=== PATIENT | female | born 1950 | race Caucasian/White ===

== ENCOUNTER 2017-11-09 09:29 | Emergency (ER) | payer OTHER ==
[~2017-11-09] VITALS: Ht 160 cm; Wt 58.6 kg
[2017-11-09 09:34] VITALS: O2SAT 99
[2017-11-09 09:41] VITALS: TEMP 36.5; Ht 160 cm; Wt 58.6 kg
[2017-11-09] MEDS: DIAZEPAM INJ 5 MG/ML 2 ML CARP IV STA ×2 (09:47→10:26)
[2017-11-09] MEDS ORDERED: ONDANSETRON INJ 2 MG/ML 2 ML VIAL IV STA (09:47)
--- NOTE | 2017-11-09 09:51 | EMERGENCY ROOM VISIT NOTE ---
History Report prepared by Andie: Raul Mccall Under the Supervision of: Dr. Michael Kwan D.O. First contact with patient: 09:42 Chief Complaint: ILLNESS Stated Complaint: ILLNESS, DIZINESS History of Present Illness The patient is a 67 year old female who presents to the Emergency Room with complaints of intermittent dizziness that began when the patient woke up this morning at 0700, 3 hours ago. The patient states that when she stood up our of bed she felt like the "room was flipping and spinning around." She immediately laid back down in bed and shut her eyes, which calmed the symptoms. The dizziness continues to be worsened with movement. The patient then got up and went to the restroom. As she was using the bathroom she got nauseous and felt like she was going to vomit. She only dry heaved. The patient continued to add that she noticed her hands feeling "tingling" during these dizzy episodes. The patient did mention one episode of vertigo several years ago, but has no significant history. Source of History: patient Onset: 3 hours ago Position: head Quality: other (dizziness) Timing: intermittent Associated Symptoms: + nausea, + numbness (tingling in hands. ) Review of Systems See HPI for pertinent positives & negatives. A total of 10 systems reviewed and were otherwise negative. Past Medical & Surgical Medical Problems: (1) LBBB (left bundle branch block) LBBB (left bundle branch block) Family History Omitted secondary to age. Social History Alcohol Use: none Drug Use: none Housing Status: lives alone Occupation Status: retired Current/Historical Medications Scheduled Meclizine Hcl (Meclizine Hcl), 1 TAB PO TID Allergies Coded Allergies: No Known Allergies (Unverified , 11/09/17) Physical Exam Vital Signs Date Time Temp Pulse Resp B/P (MAP) Pulse Ox O2 Delivery O2 Flow Rate FiO2 11/09/17 13:07 75 16 115/76 98 11/09/17 11:20 68 16 109/63 98 Room Air 11/09/17 10:26 76 18 121/78 95 Room Air 11/09/17 10:09 72 11/09/17 09:41 36.5 75 16 138/90 99 Room Air 11/09/17 09:34 99 Room Air Physical Exam GENERAL: Patient is awake, alert, and in no acute distress. Patient is resting comfortably and showing no signs of anxiety EYES: The conjunctivae are clear. The pupils are round and reactive. EARS, NOSE, MOUTH AND THROAT: The nose is without any evidence of any deformity. Mucous membranes are moist tongue is midline NECK: The neck is nontender and supple. RESPIRATORY: Normal respiratory effort is noted there is no evidence of wheezing rhonchi or rales CARDIOVASCULAR: Regular rate and rhythm noted there no murmurs rubs or gallops normal S1 normal S2 GASTROINTESTINAL: The abdomen is soft. Bowel sounds are present in all quadrants. Abdomen is nontender MUSCULOSKELETAL/EXTREMITIES: There is no evidence of gross deformity full range of motion is noted in the hips and shoulders SKIN: There is no obvious evidence of any rash. There are no petechiae, pallor or cyanosis noted. NEUROLOGIC: Patient is awake alert and oriented x3 strength is symmetric patellar reflexes are 2+ bilaterally Medical Decision & Procedures ER Provider Diagnostic Interpretation: Radiology results as stated below per my review and radiologist interpretation: CHEST ONE VIEW PORTABLE CLINICAL HISTORY: Weakness UPPER MENTAL STATUS COMPARISON STUDY: No previous studies for comparison. FINDINGS: The cardiac and mediastinal contours are normal. There is no evidence of focal pulmonary consolidation. There is no evidence of failure. No pleural effusions are visualized.[ IMPRESSION: No active disease in the chest. Electronically signed by: Kam Rizzo M.D. 11/09/2017 9:58 AM Dictated Date/Time: 11/09/2017 9:58 AM CHEST ONE VIEW PORTABLE CLINICAL HISTORY: Weakness UPPER MENTAL STATUS COMPARISON STUDY: No previous studies for comparison. FINDINGS: The cardiac and mediastinal contours are normal. There is no evidence of focal pulmonary consolidation. There is no evidence of failure. No pleural effusions are visualized.[ IMPRESSION: No active disease in the chest. Electronically signed by: Kam Rizzo M.D. 11/09/2017 9:58 AM Dictated Date/Time: 11/09/2017 9:58 AM Laboratory Results 11/09/17 09:40 Red Blood Count 4.62, Mean Corpuscular Volume 88.3, Mean Corpuscular Hemoglobin 29.7, Mean Corpuscular Hemoglobin Concent 33.6, Mean Platelet Volume 10.7, Neutrophils (%) (Auto) 78.5, Lymphocytes (%) (Auto) 15.2, Monocytes (%) (Auto) 5.1, Eosinophils (%) (Auto) 0.5, Basophils (%) (Auto) 0.4, Neutrophils # (Auto) 8.60, Lymphocytes # (Auto) 1.67, Monocytes # (Auto) 0.56, Eosinophils # (Auto) 0.06, Basophils # (Auto) 0.04 11/09/17 09:40 Test 11/09/17 09:40 White Blood Count 10.96 K/uL (4.8-10.8) Red Blood Count 4.62 M/uL (4.2-5.4) Hemoglobin 13.7 g/dL (12.0-16.0) Hematocrit 40.8 % (37-47) Mean Corpuscular Volume 88.3 fL (80-100) Mean Corpuscular Hemoglobin 29.7 pg (25-34) Mean Corpuscular Hemoglobin Concent 33.6 g/dl (32-36) Platelet Count 312 K/uL (130-400) Mean Platelet Volume 10.7 fL (7.4-10.4) Neutrophils (%) (Auto) 78.5 % Lymphocytes (%) (Auto) 15.2 % Monocytes (%) (Auto) 5.1 % Eosinophils (%) (Auto) 0.5 % Basophils (%) (Auto) 0.4 % Neutrophils # (Auto) 8.60 K/uL (1.4-6.5) Lymphocytes # (Auto) 1.67 K/uL (1.2-3.4) Monocytes # (Auto) 0.56 K/uL (0.11-0.59) Eosinophils # (Auto) 0.06 K/uL (0-0.5) Basophils # (Auto) 0.04 K/uL (0-0.2) RDW Standard Deviation 41.2 fL (36.4-46.3) RDW Coefficient of Variation 12.8 % (11.5-14.5) Immature Granulocyte % (Auto) 0.3 % Immature Granulocyte # (Auto) 0.03 K/uL (0.00-0.02) Prothrombin Time 10.1 SECONDS (9.0-12.0) Prothromb Time International Ratio 1.0 (0.9-1.1) Activated Partial Thromboplast Time 24.7 SECONDS (21.0-31.0) Partial Thromboplastin Ratio 1.0 Anion Gap 9.0 mmol/L (3-11) Est Creatinine Clear Calc Drug Dose 66.4 ml/min Estimated GFR () 104.9 Estimated GFR (Non- 90.5 BUN/Creatinine Ratio 21.0 (10-20) Calcium Level 9.6 mg/dl (8.5-10.1) Magnesium Level 2.2 mg/dl (1.8-2.4) Total Bilirubin 0.3 mg/dl (0.2-1) Direct Bilirubin < 0.1 mg/dl (0-0.2) Aspartate Amino Transf (AST/SGOT) 21 U/L (15-37) Alanine Aminotransferase (ALT/SGPT) 22 U/L (12-78) Alkaline Phosphatase 86 U/L (45-117) Troponin I < 0.015 ng/ml (0-0.045) Total Protein 7.8 gm/dl (6.4-8.2) Albumin 3.6 gm/dl (3.4-5.0) Thyroid Stimulating Hormone (TSH) 2.070 uIu/ml (0.300-4.500) Laboratory results per my review. Medications Administered Medications (Trade) Dose Ordered Sig/Sofia Route Start Time Stop Time Status Last Admin Dose Admin Ondansetron HCl (Zofran Inj) 4 mg NOW STAT IV 11/09/17 09:47 11/09/17 09:48 DC 11/09/17 10:26 4 MG ECG Per My Interpretation Rate (beats per minute): 77 Rhythm: normal sinus Findings: LBBB, other (No PVCs ) Comparison ECG Date: no prior available ED Course 0944: The patient was evaluated in room B4B. A complete history and physical examination were performed. 0947: Ordered Valium 2.5 mg IV, Zofran 4 mg IV. 1040: I checked on the patient at this time. She is going well. 1115: Upon reevaluation, the patient is resting in bed. I discussed the results and treatment plan with her. She verbalized agreement of the treatment plan. The patient was discharged home. Medical Decision Differential diagnosis: Etiologies such as benign positional vertigo, dehydration, hypovolemia, anemia, tumor, infection, hypoglycemia, electrolyte abnormalities, cardiac sources, intracerebral event, toxicologic, neurologic, as well as others were entertained. Nursing notes reviewed. The patient is a 67-year-old female who presented to the emergency department for an evaluation of vertigo. The patient had very severe symptoms when she woke today. She had very significant vertigo as well as nausea vomiting. Upon arrival to the emergency department the patient's symptoms have significantly improved. The patient did not have any focal neurologic deficits. She was ordered medication for nausea as well as vertigo but she did not wish to take all the medications were ordered. Her symptoms had significantly improved while she was in the emergency department. I discussed patient's laboratory and radiographic studies with her. I also discussed the possible causes of vertigo with her. She was encouraged to rest and avoid any strenuous activity. I also encouraged her to follow-up with her primary care physician for further evaluation of possible MRI versus ENT referral. Otherwise she was encouraged to return to the emergency department immediately if symptoms change worsen or the need arises. Medication Reconcilliation Current Medication List: was personally reviewed by me Blood Pressure Screening Patient's blood pressure: Normal blood pressure Impression Primary Impression: Vertigo Scribe Attestation The scribe's documentation has been prepared under my direction and personally reviewed by me in its entirety. I confirm that the note above accurately reflects all work, treatment, procedures, and medical decision making performed by me. Departure Information Dispostion Home / Self-Care Prescriptions Meclizine Hcl (MECLIZINE HCL) 25 Mg Tab 1 TAB PO TID for Dizziness or Vertigo, #25 TAB Prov: Michael Kwan, DO 11/09/17 Referrals No Doctor, Assigned (PCP) Forms HOME CARE DOCUMENTATION FORM, IMPORTANT VISIT INFORMATION, WORK / SCHOOL INSTRUCTIONS Patient Instructions My [facility] Additional Instructions Call your family doctor to schedule a follow-up appointment. You may require further studies such as an MRI of the brain to further evaluate the cause your symptoms. He may also require a referral to an ear nose and throat physician to further evaluate the cause your symptoms. Return to the emergency department immediately if symptoms change worsen or the need arises.
--- NOTE | 2017-11-09 10:00 | DIAGNOSTIC IMAGING REPORT ---
CHEST ONE VIEW PORTABLE CLINICAL HISTORY: Weakness UPPER MENTAL STATUS COMPARISON STUDY: No previous studies for comparison. FINDINGS: The cardiac and mediastinal contours are normal. There is no evidence of focal pulmonary consolidation. There is no evidence of failure. No pleural effusions are visualized.[ IMPRESSION: No active disease in the chest. Electronically signed by: Kam Rizzo M.D. 11/09/2017 9:58 AM Dictated Date/Time: 11/09/2017 9:58 AM
[2017-11-09 10:01] LABS: BASO % 0.4 %; BASO ABS # 0.04 K/uL (0-0.2); EOS % 0.5 %; EOS ABS # 0.06 K/uL (0-0.5); HEMATOCRIT 40.8 % (37-47); HEMOGLOBIN 13.7 g/dL (12.0-16.0); IG# 0.03 K/uL (0.00-0.02); LYMPH % 15.2 %; LYMPH ABS # 1.67 K/uL (1.2-3.4); MEAN CELL VOLUME 88.3 fL (80-100); MEAN CORPUSCULAR HEMOGLOBIN 29.7 pg (25-34); MEAN CORPUSCULAR HGB CONC 33.6 g/dl (32-36); MEAN PLATELET VOLUME 10.7 fL (7.4-10.4); MONO % 5.1 %; MONO ABS # 0.56 K/uL (0.11-0.59); NEUT % 78.5 %; PLATELET COUNT 312 K/uL (130-400); RED CELL DISTRIBUTION WIDTH CV 12.8 % (11.5-14.5); RED CELL DISTRIBUTION WIDTH SD 41.2 fL (36.4-46.3); WHITE BLOOD COUNT 10.96 K/uL (4.8-10.8)
[2017-11-09 10:10] LABS: PTT PATIENT 24.7 SECONDS (21.0-31.0)
[2017-11-09 10:18] LABS: ALBUMIN 3.6 gm/dl (3.4-5.0); ALT/SGPT 22 U/L (12-78); BLOOD UREA NITROGEN 14 mg/dl (7-18); CALCIUM 9.6 mg/dl (8.5-10.1); CARBON DIOXIDE 24 mmol/L (21-32); CREATININE 0.68 mg/dl (0.60-1.20); GLUCOSE 110 mg/dl (70-99); POTASSIUM 3.5 mmol/L (3.5-5.1); SODIUM 139 mmol/L (136-145)
--- NOTE | 2017-11-09 10:22 | DIAGNOSTIC IMAGING REPORT ---
HEAD WITHOUT CONTRAST (CT) CT DOSE: 537.48 mGy.cm HISTORY: Mental status change EVALUATE ALTERED MENTAL STATUS/WEAKNESS TECHNIQUE: Multiaxial CT images of the head were performed without the use of intravenous contrast. A dose lowering technique was utilized adhering to the principles of ALARA. Comparison: None. Findings: The paranasal sinuses and mastoid air cells are clear. The calvarium and skull base are intact. The ventricles and sulci are within normal limits. There is no mass, hematoma, midline shift, or acute infarct. Impression: No acute intracranial abnormality. The above report was generated using voice recognition software. It may contain grammatical, syntax or spelling errors. Electronically signed by: Gabriel García M.D. 11/09/2017 10:21 AM Dictated Date/Time: 11/09/2017 10:20 AM
[2017-11-09 10:29] LABS: ALKALINE PHOSPHATASE 86 U/L (45-117); AST/SGOT 21 U/L (15-37); TOTAL PROTEIN 7.8 gm/dl (6.4-8.2)
[2017-11-09] MEDS ORDERED: MECL1TAB42 PO (10:52)
[2017-11-09 13:07] VITALS: BP 115/76; PULSE 75; O2SAT 98
== END 2017-11-09 13:07 | disposition home or self-care (01) ==
LOC: C.EDB 09:33
DX: R42 Dizziness and giddiness (principal); I44.7 Left bundle-branch block, unspecified